=== PATIENT | male | born 1955 ===

== ENCOUNTER 2024-09-16 05:58 | Day surgery (SDC) | payer MEDICARE, OTHER ==
[2024-09-15 12:48] VITALS: BMI 45.8
[2024-09-16] MEDS ORDERED: Lidocaine 2% PF 5 ML VIAL ONE (07:12)
[2024-09-16] MEDS ORDERED: PROPOFOL 60 ML ONE (07:12)
== END 2024-09-16 09:45 | disposition home or self-care (01) ==
LOC: SDC 05:58
PROVIDERS: ATTEND Internal Medicine Gastroenterology
PROC: 0DJD8ZZ Inspection of Lower Intestinal Tract, Via Natural or Artificial Opening Endoscopic (ICD-10-PCS; principal; 2024-09-16)
DX: Z12.11 Encounter for screening for malignant neoplasm of colon (principal); K57.30 Diverticulosis of large intestine without perforation or abscess without bleeding; K64.0 First degree hemorrhoids; K21.9 Gastro-esophageal reflux disease without esophagitis; I10 Essential (primary) hypertension; M19.90 Unspecified osteoarthritis, unspecified site; G47.00 Insomnia, unspecified; Z88.8 Allergy status to other drugs, medicaments and biological substances; Z87.891 Personal history of nicotine dependence; Z79.899 Other long term (current) drug therapy; Z96.651 Presence of right artificial knee joint
CPT/HCPCS: G0121; J2704